=== PATIENT | male | born 1970 | race Caucasian/White ===

== ENCOUNTER 2017-02-17 09:11 | Emergency (ER) | payer OTHER ==
--- NOTE | ~2017-02-17 | CT92 ---
[facility] A Service of [facility] RADIOLOGY TEXT RESULTS PATIENT: KELLE SCHAEFFER LOCATION: SED : 72 UNIT #: [id number] AGE: [address]: Livia Flower MD SEX: M ORDER DR: [id number] [address] [address] [id number] E MR#: [id number] Acc #: [id number] NAME: KELLE SCHAEFFER : 1970 SEX: M STUDY DATE/TIME: 02/17/2017 09:53 UNIT: SED ROOM: STUDY DESCRIPTION: CT Lower Ext Lt Wo Cont Attending Physician: Livia Flower M.D. Ordering Physician: Livia Flower M.D. Primary Care Physician: Primary Care Physician No MEDICAL IMAGING REPORT This report is preliminary unless electronic signature is present. EXAM Left hip, 02/17/2017 09:53 hours HISTORY Patient injured himself two weeks ago while working on a truck. Patient pushed heavy material back with foot with left hip and leg and back pain since injury. COMPARISON Sacrum and coccyx, 04/15/2014. No prior hip film. FINDINGS AP pelvis, AP and frog lateral views of the left hip demonstrate overall normal bone density. There is no acute fracture or dislocation. There is a small soft tissue calcification at the superolateral acetabulum on the left which appears to be new compared to the lumbar spine series of 04/15/2014. Sacrum and sacroiliac joints are unremarkable. IMPRESSION No hip or pelvic fracture seen. There is a small soft tissue calcification at the superolateral acetabulum which is new compared to lumbar spine series 04/15/2014. This is of doubtful clinical significance. Dictated by... Mary Pierce M.D. THIS IS AN ELECTRONICALLY VERIFIED REPORT Mary Pierce M.D. at 02/17/2017 2:31 PM [place] TD: 02/17/2017 11:34 JOB #: [id number] [facility] A Service of [facility] RADIOLOGY TEXT RESULTS PATIENT: KELLE SCHAEFFER LOCATION: [facility] : [birth year] UNIT #: [id number] AGE: [address]: Livia Flower MD SEX: M ORDER DR: MEDICAL IMAGING REPORT Page 1 of 1
--- NOTE | ~2017-02-17 | CR181 ---
[facility] A Service [facility] RADIOLOGY TEXT RESULTS PATIENT: KELLE SCHAEFFER LOCATION: SED : 72 UNIT #: [id number] AGE: [address]: Livia Flower MD SEX: M ORDER DR: [id number] [address] [address] [id number] E MR#: [id number] Acc #: [id number] NAME: KELLE SCHAEFFER : 1970 SEX: M STUDY DATE/TIME: UNIT: SED ROOM: STUDY DESCRIPTION: CR Lumbar Spine 2 or 3 Views Attending Physician: Livia Flower M.D. Ordering Physician: Livia Flower M.D. Primary Care Physician: Primary Care Physician No MEDICAL IMAGING REPORT This report is preliminary unless electronic signature is present. EXAM Lumbar spine series, 02/17/2017 09:53 hours HISTORY 47-year-old man with complaint of low back pain for 2 weeks. Patient states he was working on a truck and pushed heavy material back with foot with onset of back pain. COMPARISON 04/15/2014 FINDINGS AP and lateral views of the lumbar spine and a cone lateral view of the lumbosacral junction were performed. There are five non-rib bearing lumbar type vertebrae. There is mild endplate spurring throughout the lumbar spine. There is mild disc height loss at L4-5 similar to prior study. There is facet arthropathy L5-S1 unchanged. IMPRESSION Mild disc height loss L4-5 and facet arthropathy L5-S1 similar to 04/15/2014. There is mild multilevel endplate spurring but no fracture or subluxation. Dictated by... Mary Pierce M.D. THIS IS AN ELECTRONICALLY VERIFIED REPORT Mary Pierce M.D. at 02/17/2017 2:31 PM [place] TD: 02/17/2017 11:40 JOB #: [id number] [facility] A Service of [facility] RADIOLOGY TEXT RESULTS PATIENT: KELLE SCHAEFFER [facility] [id number] : [birth year] UNIT #: [id number] AGE: [address]: Livia Flower MD SEX: M ORDER DR: MEDICAL IMAGING REPORT Page 1 of 1
--- NOTE | ~2017-02-17 | CR252 ---
[facility] A Service of [facility] RADIOLOGY TEXT RESULTS PATIENT: KELLE SCHAEFFER LOCATION: SED : 72 UNIT #: [id number] AGE: [address]: Livia Flower MD SEX: M ORDER DR: [id number] [address] [address] [id number] E MR#: [id number] Acc #: [id number] NAME: KELLE SCHAEFFER : 1970 SEX: M STUDY DATE/TIME: 02/17/2017 09:53 UNIT: SED ROOM: STUDY DESCRIPTION: CR Tibia and Fibula 2 Views Lt Attending Physician: Livia Flower M.D. Ordering Physician: Livia Flower M.D. Primary Care Physician: Primary Care Physician No MEDICAL IMAGING REPORT This report is preliminary unless electronic signature is present. EXAM Left tibia and fibula, 02/17/2017 09:53 hours HISTORY Patient suffered injury 2 weeks ago working on truck. Pushed heavy material back with foot. Left hip pain, left leg pain and low back pain. History of back surgery and ankle surgery. COMPARISON Left tibia and fibula, 04/15/2014 FINDINGS AP and lateral views of the tibia and fibula demonstrate plate and screw fixator laterally through the distal aspect of the fibula. Previous fracture is healed. There is no acute fracture seen. IMPRESSION Plate and screw fixator is present in the distal third of the fibula at site of healed fracture. No acute fracture seen. Dictated by... Mary Pierce M.D. THIS IS AN ELECTRONICALLY VERIFIED REPORT Mary Pierce M.D. at 02/17/2017 2:31 PM TERRY/norman TD: 02/17/2017 11:31 JOB #: [id number] MEDICAL IMAGING REPORT Page 1 of 1
[~2017-02-17 09:11] MED LIST: KEFLEX500 M2 PO; NO MEDICATIONS; PERCOCET10 PO
[2017-03-07] MEDS ORDERED: FLEXERIL PO (15:10)
[2017-03-07] MEDS ORDERED: HYDROCODON-ACE1 EAC5 PO (15:11)
== END 2017-02-17 13:22 | disposition home or self-care (01) ==
LOC: SED 09:11
DX: S73.102A Unspecified sprain of left hip, initial encounter (principal); F17.200 Nicotine dependence, unspecified, uncomplicated; Z88.5 Allergy status to narcotic agent; W22.8XXA Striking against or struck by other objects, initial encounter; Y92.009 Unspecified place in unspecified non-institutional (private) residence as the place of occurrence of the external cause
CPT/HCPCS: 72100; 73502; 73590; 73700; 96372; 99284; J1170; J1885

== ENCOUNTER → 2017-03-07 | Day surgery (SDC) | payer OTHER ==
[~2017-03-07] MED LIST changes: +FLEXERIL PO; +HYDROCODON-ACE1 EAC5 PO
--- NOTE | ~2017-03-07 | OR ---
Unit #: [id number] #: [id number] Patient: KELLE SCHAEFFER [id number] [address] [place], [place] [address] [id number] O MR#: [id number] NAME: KELLE SCHAEFFER. ROOM: Date of Procedure: 03/07/2017 Admission Date: 03/07/2017 Surgeon: Panchito Li M.D. : 1970 Attending Physician: Mukesh Li Primary Care Physician: Lawanda Wall M.D. SUR[facility]ERY CENTER OPERATIVE NOTE PROCEDURE PERFORMED Lumbar epidural steroid injection under x-ray guided needle placement with provider administered conscious sedation. PREOPERATIVE DIAGNOSES 1. Acute lumbar radiculitis. 2. Spinal stenosis, lumbosacral spine. 3. Herniated disk, L4-L5. 4. Degenerative joint disease, lumbosacral spine. 5. Degenerative disk disease, lumbosacral spine. INDICATIONS FOR PROCEDURE The patient presents today with a 2 to 3 month history of crescendo pattern advancing left lower extremity pain in a radicular pattern. He is in a possession of an MRI report, which shows a large herniated disk at the L4-L5 level which is consistent with his disease pattern. His disease has failed to respond to medications and physical therapy. He presents today requesting an epidural steroid injection. He states he had failed epidural steroid injections approximately 10 years ago and required surgery for which he did very well. He did not know the exact nature of his surgery and that information was not readily available. After discussing risks and benefits of proceeding today with a lumbar approach epidural steroid injection, the patient now agreed this would be the appropriate course of action. DESCRIPTION OF PROCEDURE He was then taken to the operating room, where he was prepped and draped in a sterile manner. Standard monitors were applied. He was sedated with 2 mg of IV Versed initially and required an additional 2 mg of IV Versed throughout the duration of the procedure. Upon x-ray examination, it appeared the patient previously had a right-sided L3-L4 laminectomy. The epidural needle was placed at the L4-L5 level under x-ray guidance using loss of resistance and x-ray guidance technique. Needle placement was confirmed at the L4-L5 level with the injection of 2 mL of Omnipaque. Approximately, all dye flow at this L4-L5 level was in the superior direction. Therefore, at next visit we will consider an L5-S1 needle placement. Following successful needle placement confirmation at the L4-L5 level, the patient received an injectate containing 2 mL normal saline, 2 mL of 0.25% bupivacaine, and 80 mg of methylprednisolone. He tolerated this procedure well. He was discharged home with followup instructions, which include return to this clinic on 03/23/2017. Unit #: [id number] #: [id number] Patient: KELLE SCHAEFFER Natty Dictated by... Elsa Vee/cecilia TD: 03/07/2017 16:49 JOB #: [id number] CC: Get Sorto M.D. SURGERY CENTER OPERATIVE NOTE Page 1 of 1 X Mukesh Li MD X PROCEDURE OPERATIVE NOTE
== END | disposition home or self-care (01) ==
LOC: CCSC 15:02
DX: M51.17 Intervertebral disc disorders with radiculopathy, lumbosacral region (principal); M51.16 Intervertebral disc disorders with radiculopathy, lumbar region; M47.27 Other spondylosis with radiculopathy, lumbosacral region; M48.07 Spinal stenosis, lumbosacral region; F17.210 Nicotine dependence, cigarettes, uncomplicated; Z88.6 Allergy status to analgesic agent; Z79.891 Long term (current) use of opiate analgesic; Z79.899 Other long term (current) drug therapy; Z98.890 Other specified postprocedural states
CPT/HCPCS: J1040; J2250